=== PATIENT | female | born 1945 | race Caucasian/White ===

== ENCOUNTER 2017-07-24 17:26 | Emergency (ER) | payer OTHER ==
[2017-07-24] MEDS ORDERED: ALTEPLASE, RECOMBINANT 50 MG PDS IV ONE ×5 (17:37→18:18)
[2017-07-24] MEDS ORDERED: SODIUM CHLORIDE 0.9% FLUSH 10 ML SOL IV PRN ×3 (17:37→18:18)
[2017-07-24] MEDS ORDERED: SODIUM CHLORIDE 0.9% 50 ML 50 ML IV SCH ×2 (17:45→18:30)
[2017-07-24] MEDS ORDERED: SODIUM CHLORIDE 0.9% 1000ML 1,000 ML IV SCH (17:45)
[2017-07-24 17:53] LABS: BASOPHILS % (AUTO) 1 % (0-3); EOSINOPHILS % (AUTO) 3 % (0-9); HEMATOCRIT 41 % (35-47); HEMOGLOBIN 13.1 gm/dl (12.0-15.5); MEAN CORPUSCULAR HEMOGLOBIN 30.4 pg (27.0-32.0); MEAN CORPUSCULAR HGB CONC 32.1 gm/dl (32.0-36.0); MEAN CORPUSCULAR VOLUME 95 fL (81-99); MONOCYTES % (AUTO) 11.2 % (0-12); NEUTROPHILS % (AUTO) 62.6 % (37-80)
[2017-07-24 18:01] LABS: CALCIUM 8.7 mg/dl (8.5-10.1); CREATININE 0.87 mg/dl (0.60-1.00); POTASSIUM 4.1 mMol/L (3.5-5.1)
[2017-07-24 18:05] LABS: INR 0.94 (0.86-1.12)
[2017-07-24 18:07] LABS: CARBON DIOXIDE 33.1 mEq/L (21-32)
[2017-07-24 18:29] VITALS: TEMP 97.8
[2017-07-24 18:35] VITALS: BP 161/74; PULSE 89; RESP 17; O2SAT 93
== END 2017-07-24 18:35 | disposition short-term general hospital (02) | DRG 66 ==
LOC: ED 17:26
DX: I63.9 Cerebral infarction, unspecified (principal); R06.00 Dyspnea, unspecified; E11.9 Type 2 diabetes mellitus without complications; M62.81 Muscle weakness (generalized); R09.02 Hypoxemia; R47.81 Slurred speech; R29.810 Facial weakness; R06.02 Shortness of breath; R06.2 Wheezing; R53.81 Other malaise; R29.718 NIHSS score 18; R40.2362 Coma scale, best motor response, obeys commands, at arrival to emergency department; R40.2142 Coma scale, eyes open, spontaneous, at arrival to emergency department; R40.2242 Coma scale, best verbal response, confused conversation, at arrival to emergency department
CPT/HCPCS: 36415; 70450; 71045; 80048; 82962; 85025; 85610; 85730; 93005; 96374; 99291; 99292; J2997